=== PATIENT | male | born 1970 | race Caucasian/White ===

== ENCOUNTER 2017-05-15 23:30 | Emergency (ER) | payer OTHER ==
[~2017-05-15] VITALS: Ht 170.2 cm; Wt 98.2 kg
[~2017-05-15 23:30] MED LIST: LPT/20 PO; ZOLP10TA6 PO
[2017-05-15 23:33] VITALS: TEMP 36.8; Ht 170.2 cm; Wt 98.2 kg
[2017-05-15] MEDS ORDERED: OPTIRAY 320 IV PRN (23:45)
--- NOTE | 2017-05-15 23:50 | EMERGENCY ROOM VISIT NOTE ---
History Report prepared by Ashley: Zayda Noe Under the Supervision of: Dr. Lowell Reina M.D. First contact with patient: 23:35 Chief Complaint: ABDOMINAL PAIN Stated Complaint: ABDOMINAL PAIN History of Present Illness The patient is a 46 year old male who presents to the Emergency Room with complaints of worsening abdominal pain starting a month ago. The patient states that he has had Diverticulitis in the past. He states that this pain feels the same. The patient states that it has been radiating from one side of his abdomen to the other. He denies it radiating to his back. The patient states that he went to his PCP who put him on two antibiotics that he finished last week. He states that during the use of the antibiotics, he had diarrhea. The patient reports that it got better and then became severe tonight. He denies hematochezia, rash, chest pain, shortness of breath, and a history of kidney stones. Source of History: patient Onset: a month ago Position: abdomen Quality: other (similar to Diverticulits) Timing: worsening (similar to Diverticulitis) Associated Symptoms: + diarrhea, No chest pain, No SOB, No hematochezia, No rash Review of Systems See HPI for pertinent positives & negatives. A total of 10 systems reviewed and were otherwise negative.v Past Medical & Surgical Medical Problems: (1) Anxiety (2) Anxiety State Nos (3) Benign hypertension (4) Benign Hypertension (5) Tobacco Use Disorder Surgical Problems: (1) History of rotator cuff surgery Family History Diabetes mellitus Social History Smoking Status: Current Every Day Smoker Alcohol Use: occasionally Drug Use: marijuana Marital Status: single Occupation Status: employed Current/Historical Medications Scheduled Amoxicillin & Pot Clavulanate (Augmentin 875-125 mg), 875 MG PO BID Atorvastatin (Atorvastatin Calcium), 20 MG PO DAILY Scheduled PRN Oxycodone Immediate Rel Tab (Roxicodone Ir), 1-2 TAB PO Q4H PRN for Severe Pain Allergies Coded Allergies: No Known Allergies (Verified , 05/06/15) Physical Exam Vital Signs Date Time Temp Pulse Resp B/P (MAP) Pulse Ox O2 Delivery O2 Flow Rate FiO2 05/16/17 01:36 82 18 127/90 97 Room Air 05/16/17 00:43 84 18 130/85 94 Room Air 05/15/17 23:33 36.8 90 16 178/101 99 Room Air Physical Exam GENERAL: Patient is uncomfortable appearing and in mild distress. HEENT: No acute trauma, normocephalic atraumatic, mucous membranes moist, no nasal congestion, no scleral icterus. NECK: No stridor, no adenopathy, no meningismus, trachea is midline. LUNGS: No dyspnea. Clear to auscultation and equal bilaterally. No wheeze, no rhonchi. HEART: Regular rate and rhythm. No murmurs, rubs, gallops appreciated. ABDOMEN: Soft, bowel sounds positive, no masses appreciated, no peritonitis. Mild tenderness to palpation in LLQ. BACK: No midline tenderness, no CVA tenderness EXTREMITIES: Normal motion all extremities, no cyanosis, no edema. NEUROLOGIC: Alert and oriented, no acute motor or sensory deficits, no focal weakness, cranial nerves grossly intact. SKIN: No rash, no jaundice, no diaphoresis. Medical Decision & Procedures ER Provider Diagnostic Interpretation: Radiology results and stated below per my review and radiologist interpretation: CT ABDOMEN & PELVIS With Contrast: Very mild diverticulitis in a segment of the distal descending colon. No abscess. Unremarkable appendix. Left renal cyst. Radiologist: Agusto Hutton M.D. Study ready at 00:23 and initial results transmitted at 00:32. Laboratory Results 05/15/17 23:50 Red Blood Count 5.81, Mean Corpuscular Volume 89.8, Mean Corpuscular Hemoglobin 31.8, Mean Corpuscular Hemoglobin Concent 35.4, Mean Platelet Volume 10.3, Neutrophils (%) (Auto) 49.6, Lymphocytes (%) (Auto) 38.4, Monocytes (%) (Auto) 8.3, Eosinophils (%) (Auto) 3.0, Basophils (%) (Auto) 0.5, Neutrophils # (Auto) 7.03, Lymphocytes # (Auto) 5.45, Monocytes # (Auto) 1.18, Eosinophils # (Auto) 0.43, Basophils # (Auto) 0.07 05/15/17 23:50 Test 05/15/17 23:50 05/15/17 23:56 05/16/17 00:40 White Blood Count 14.19 K/uL (4.8-10.8) Red Blood Count 5.81 M/uL (4.7-6.1) Hemoglobin 18.5 g/dL (14.0-18.0) Hematocrit 52.2 % (42-52) Mean Corpuscular Volume 89.8 fL (80-100) Mean Corpuscular Hemoglobin 31.8 pg (25-34) Mean Corpuscular Hemoglobin Concent 35.4 g/dl (32-36) Platelet Count 205 K/uL (130-400) Mean Platelet Volume 10.3 fL (7.4-10.4) Neutrophils (%) (Auto) 49.6 % Lymphocytes (%) (Auto) 38.4 % Monocytes (%) (Auto) 8.3 % Eosinophils (%) (Auto) 3.0 % Basophils (%) (Auto) 0.5 % Neutrophils # (Auto) 7.03 K/uL (1.4-6.5) Lymphocytes # (Auto) 5.45 K/uL (1.2-3.4) Monocytes # (Auto) 1.18 K/uL (0.11-0.59) Eosinophils # (Auto) 0.43 K/uL (0-0.5) Basophils # (Auto) 0.07 K/uL (0-0.2) RDW Standard Deviation 41.6 fL (36.4-46.3) RDW Coefficient of Variation 12.7 % (11.5-14.5) Immature Granulocyte % (Auto) 0.2 % Immature Granulocyte # (Auto) 0.03 K/uL (0.00-0.02) Est Creatinine Clear Calc Drug Dose 105.1 ml/min Estimated GFR () 107.3 Estimated GFR (Non- 92.6 BUN/Creatinine Ratio 8.0 (10-20) Calcium Level 8.8 mg/dl (8.5-10.1) Total Bilirubin 0.4 mg/dl (0.2-1) Direct Bilirubin < 0.1 mg/dl (0-0.2) Aspartate Amino Transf (AST/SGOT) 27 U/L (15-37) Alanine Aminotransferase (ALT/SGPT) 63 U/L (12-78) Alkaline Phosphatase 78 U/L (45-117) Total Protein 8.1 gm/dl (6.4-8.2) Albumin 4.1 gm/dl (3.4-5.0) Lipase 231 U/L (73-393) Bedside Hemoglobin 18.7 g/dl (14.0-18.0) Bedside Hematocrit 55 % (42-52) Bedside Sodium 141 mEq/L (135-144) Bedside Potassium 3.9 mEq/L (3.3-5.0) Bedside Chloride 101 mEq/L (101-112) Bedside Total CO2 26 mEq/l (24-31) Anion Gap 19.0 mmol/L (16-25) Bedside Blood Urea Nitrogen 7 mg/dl (7-18) Bedside Creatinine 0.9 mg/dl (0.6-1.3) Bedside Glucose (other) 105 mg/dl (70-99) Bedside Ionized Calcium (Donna) 1.13 mmol/l (1.12-1.32) Urine Color YELLOW Urine Appearance CLEAR (CLEAR) Urine pH 8.0 (4.5-7.5) Urine Specific Ivins 1.024 (1.000-1.030) Urine Protein NEG (NEG) Urine Glucose (UA) NEG (NEG) Urine Ketones NEG (NEG) Urine Occult Blood NEG (NEG) Urine Nitrite NEG (NEG) Urine Bilirubin NEG (NEG) Urine Urobilinogen NEG (NEG) Urine Leukocyte Esterase NEG (NEG) Urine WBC (Auto) 0 /hpf (0-5) Urine RBC (Auto) 0-4 /hpf (0-4) Urine Hyaline Casts (Auto) 0 /lpf (0-5) Urine Epithelial Cells (Auto) 0-5 /lpf (0-5) Urine Bacteria (Auto) NEG (NEG) Laboratory results as reviewed by me. Medications Administered Medications (Trade) Dose Ordered Sig/Yvonne Route Start Time Stop Time Status Last Admin Dose Admin Ampicillin Sodium/ Sulbactam Sodium 3000 mg/Sodium Chloride 108 ml @ 200 mls/hr ONE ONCE IV 05/16/17 01:00 05/16/17 01:32 DC 05/16/17 01:07 200 MLS/HR Oxycodone HCl (Roxicodone Immediate Rel 5MG Home Pack) 1 homepack UD ONCE PO 05/16/17 01:30 05/16/17 01:31 DC 05/16/17 01:30 1 HOMEPACK ED Course 2336: The patient was evaluated in room A10. A complete history and physical exam was performed. 0046: I reevaluated the patient and he would like a dose of IV antibiotics while he decides if he wants to go home or not. 0100: Ordered Ampicillin Sodium/ Sulbactam Sodium 3000 mg/ Sodium Chloride 108 ml @ 200 mls/hr IV. 0109: Reevaluated the patient. Discussed results and discharge instructions: He verbalized understanding and agreement. The patient is ready for discharge. 0130: Ordered Oxycodone HCl 1 homepack PO. Medical Decision Differential: Diverticulitis, MSK, , UTI, Renal Colic, Bowel Obstruction, Aortic Pathology, amongst other pathologies entertained. 46 yr old male with left lower quadrant pain for last few weeks, initially improving with cipro/flagyl but worsening last few days. Mild WBC elevation though otherwise labs OK. CT with diverticulitis uncomplicated. With minimal symptoms, no systemic symptoms, and only mild WBC elevation seems reasonable continue outpatient abx. Will switch to Augmentin after IV dose unasyn here. Patient stable without peritonitis. Reviewed at length symptoms requiring return. Narcs for pain, reviewed at length risks/restrictions. Advised PCP follow up to discuss HTN and GI follow up. Medication Reconcilliation Current Medication List: was personally reviewed by me Blood Pressure Screening Patient's blood pressure: Elevated blood pressure Blood pressure disposition: Referred to PCP Impression Primary Impression: Diverticulitis large intestine Scribe Attestation The scribe's documentation has been prepared under my direction and personally reviewed by me in its entirety. I confirm that the note above accurately reflects all work, treatment, procedures, and medical decision making performed by me. Departure Information Dispostion Home / Self-Care Prescriptions Oxycodone Immediate Rel Tab (ROXICODONE IR) 5 Mg Tab 1-2 TAB PO Q4H Y for Severe Pain, #12 TAB Prov: Lowell Reina M.D. 05/16/17 Amoxicillin & Pot Clavulanate (Augmentin 875-125 mg) 1 Tab Tab 875 MG PO BID for 10 Days, #20 TAB Prov: Lowell Reina M.D. 05/16/17 Referrals Ney Rust M.D.([facility]) (PCP) Forms Call Back Authorization, HOME CARE DOCUMENTATION FORM, IMPORTANT VISIT INFORMATION Patient Instructions ED Diverticulitis, My [facility] Additional Instructions You have received a narcotic pain medication prescription. These medications may cause drowsiness and should not be used with other sedative medications. Do not drive, drink alcohol, perform dangerous activities, nor make important decisions after taking these medications. correction use or inappropriate use may lead to addiction.
[2017-05-16 00:07] LABS: HEMATOCRIT 52.2 % (42-52); MEAN CELL VOLUME 89.8 fL (80-100); MEAN CORPUSCULAR HEMOGLOBIN 31.8 pg (25-34); MEAN CORPUSCULAR HGB CONC 35.4 g/dl (32-36); MEAN PLATELET VOLUME 10.3 fL (7.4-10.4); PLATELET COUNT 205 K/uL (130-400); RED BLOOD COUNT 5.81 M/uL (4.7-6.1); WHITE BLOOD COUNT 14.19 K/uL (4.8-10.8)
[2017-05-16 00:10] LABS: ISTAT CREATININE 0.9 mg/dl (0.6-1.3); ISTAT HEMOGLOBIN 18.7 g/dl (14.0-18.0); ISTAT IONIZED CALCIUM 1.13 mmol/l (1.12-1.32)
[2017-05-16 00:28] LABS: ALT/SGPT 63 U/L (12-78); AST/SGOT 27 U/L (15-37); BLOOD UREA NITROGEN 8 mg/dl (7-18); CALCIUM 8.8 mg/dl (8.5-10.1); CARBON DIOXIDE 26 mmol/L (21-32); CHLORIDE 107 mmol/L (98-107); CREATININE 0.97 mg/dl (0.60-1.40); GLUCOSE 105 mg/dl (70-99); POTASSIUM 3.9 mmol/L (3.5-5.1); SODIUM 141 mmol/L (136-145)
[2017-05-16 00:31] LABS: ALKALINE PHOSPHATASE 78 U/L (45-117)
[2017-05-16 00:55] LABS: URINE APPEARANCE CLEAR (CLEAR); URINE BILIRUBIN NEG (NEG); URINE COLOR YELLOW; URINE EPITHELIAL CELL AUTO 0-5 /lpf (0-5); URINE NITRITE NEG (NEG); URINE SPECIFIC GRAVITY 1.024 (1.000-1.030); UROBILINOGEN NEG (NEG); ZZUR CULT IF INDIC CLEAN CATCH NO
[2017-05-16 00:56] LABS: MANUAL MICROSCOPIC REQUIRED? NO; REVIEW REQ? NO
[2017-05-16] MEDS ORDERED: AMPICILLIN/SULBACTAM SOD INJ 3,000 MG in SODIUM CHLORIDE 0.9% 100ML 100 ML IV ONE (01:00)
[2017-05-16 01:09] LABS: BASO % 0.5 %; BASO ABS # 0.07 K/uL (0-0.2); COMPLETE YES; IG% 0.2 %; LYMPH % 38.4 %; LYMPH ABS # 5.45 K/uL (1.2-3.4); MONO % 8.3 %; NEUT % 49.6 %
[2017-05-16] MEDS ORDERED: AMOX875T PO (01:18)
[2017-05-16] MEDS ORDERED: OXYC1TAB3 PO (01:18)
[2017-05-16] MEDS ORDERED: OXYCODONE IR HOME PACK PO ONE (01:30)
[2017-05-16 01:36] VITALS: BP 127/90; PULSE 82; O2SAT 97
--- NOTE | 2017-05-16 05:44 | DIAGNOSTIC IMAGING REPORT ---
ABD/PELVIS IV CONTRAST ONLY CT DOSE: 666.70 mGy.cm HISTORY: Pain. Left flank pain. LLQ pain TECHNIQUE: Multiaxial CT images of the abdomen and pelvis were performed following the use of intravenous contrast. A dose lowering technique was utilized adhering to the principles of ALARA. COMPARISON STUDY: 05/07/2015 FINDINGS: Lung bases are clear. Liver spleen and pancreas are unremarkable. 2 cm upper pole left renal cyst. Kidneys enhance uniformly. Left renal parapelvic cyst. No evidence for hydronephrosis. Nonobstructive bowel pattern. Mild diverticulitis involving the juncture of the descending and proximal sigmoid colon cyst. No evidence for abscess collection or obstruction. Bladder is midline. No free fluid within the pelvic cul-de-sac. No significant abdominal pelvic or inguinal adenopathy. IMPRESSION: Mild diverticulitis juncture of the descending and proximal sigmoid colonic regions. No evidence for abscess collection or obstruction. Small left renal cyst. The above report was generated using voice recognition software. It may contain grammatical, syntax or spelling errors. Electronically signed by: Westley Reed M.D. 05/16/2017 5:43 AM Dictated Date/Time: 05/16/2017 5:40 AM
== END 2017-05-16 01:38 | disposition home or self-care (01) ==
LOC: C.EDB 23:31 → C.EDA 05-16 01:38
DX: K57.32 Diverticulitis of large intestine without perforation or abscess without bleeding (principal); F41.9 Anxiety disorder, unspecified; I10 Essential (primary) hypertension; F17.210 Nicotine dependence, cigarettes, uncomplicated; Z83.3 Family history of diabetes mellitus; Z79.899 Other long term (current) drug therapy